=== PATIENT | female | born 1995 | race Native Hawaiian/Other Pacific Islander ===

== ENCOUNTER 2022-02-13 17:20 | Emergency (ER) | payer OTHER ==
[~2022-02-13] VITALS: Ht 165.1 cm; Wt 97.1 kg
[2022-02-13 17:35] VITALS: TEMP 98.6
[2022-02-13 18:42] LABS: PLATELET COUNT 272 K/uL (152-353)
[2022-02-13 18:59] LABS: POTASSIUM 4.3 mmol/L (3.6-5.2)
[2022-02-13 21:52] VITALS: BP 118/64
== END 2022-02-13 21:52 | disposition still patient (30) ==
LOC: ED 17:20
PROVIDERS: Emergency Medicine Emergency Medical Services
DX: R51.9 Headache, unspecified (principal); M54.59 Other low back pain
CPT/HCPCS: 36415; 80048; 80307; 81002; 81025; 85008; 85027; 96360; 96361; 96375; 99284; J1885; J2270; J2405